=== PATIENT | female | born 1995 ===

== ENCOUNTER → 2021-11-01 | Outpatient (CLI) | payer OTHER ==
[~2021-11-01] MED LIST: DICLEGIS PO; MACROBID 1100 MG/CAP PO; MOTRIN 800800 MG/TAB PO; ZANTAC 150MG T150 MG PO
== END ==
LOC: MHCPAIN 08:02
DX: M54.50 Low back pain, unspecified (principal); M53.3 Sacrococcygeal disorders, not elsewhere classified; M47.896 Other spondylosis, lumbar region; M51.36 Other intervertebral disc degeneration, lumbar region
CPT/HCPCS: G0463